=== PATIENT | female | born 1935 | race Caucasian/White ===

== ENCOUNTER 2017-05-26 08:32 | Emergency (ER) | payer MEDICARE, OTHER ==
[2017-05-26] MEDS: morphine 4 MG/ML VIAL IV (09:24)
[2017-05-26] MEDS: ONDANSETRON 4 MG INJ IV (09:24)
[2017-05-26] MEDS: METHYLPREDNISOLONE 125 MG INJ IV (09:24)
[2017-05-26] MEDS: KETOROLAC 15 MG INJ IV (09:24)
== END 2017-05-26 10:50 | disposition home or self-care (01) ==
LOC: E/R 08:32
DX: M54.42 Lumbago with sciatica, left side (principal); I10 Essential (primary) hypertension; I25.10 Atherosclerotic heart disease of native coronary artery without angina pectoris; E11.9 Type 2 diabetes mellitus without complications; Z79.82 Long term (current) use of aspirin
CPT/HCPCS: 96374; 96375; 99284-25

== ENCOUNTER 2017-08-26 17:17 | Emergency (ER) | payer MEDICARE, OTHER ==
[2017-08-26] MEDS: morphine 4 MG/ML VIAL IV (20:53)
[2017-08-26] MEDS: KETOROLAC 15 MG INJ IV (20:53)
[2017-08-26] MEDS: predniSONE 20 MG TAB PO (20:54)
[2017-08-26] MEDS: METHOCARBAMOL 750 MG TAB PO (21:01)
[2017-08-26] MEDS: HYDROmorphONE 0.5 MG/0.5 ML SYG IV (22:26)
== END 2017-08-26 22:21 | disposition home or self-care (01) ==
LOC: E/R 17:17
DX: M54.41 Lumbago with sciatica, right side (principal); M54.42 Lumbago with sciatica, left side; I10 Essential (primary) hypertension; I25.10 Atherosclerotic heart disease of native coronary artery without angina pectoris; Z79.82 Long term (current) use of aspirin; Z79.84 Long term (current) use of oral hypoglycemic drugs; Z95.1 Presence of aortocoronary bypass graft
CPT/HCPCS: 96374; 96375; 99284-25

== ENCOUNTER 2017-09-24 22:23 | Inpatient (IN) | payer MEDICARE, OTHER ==
[2017-09-24] MEDS: SOD CHLORIDE 0.9% 500 ML IV (23:30)
[2017-09-24 23:33] LABS: ADD MAN DIFF? NO
[2017-09-24 23:35] LABS: BASOPHILS % 0.4 % (0.0-2.0); EOSINOPHILS # 0.2 10^3/ul (0.0-0.5); EOSINOPHILS % 2.4 % (0.0-7.0); HEMATOCRIT 45.2 % (37.0-47.0); HEMOGLOBIN 15.4 g/dl (12.0-16.0); LYMPHOCYTES % 26.4 % (15.0-51.0); MEAN CORPUSCULAR HGB CONC 34.1 g/dl (32.0-37.0); MEAN CORPUSCULAR VOLUME 90.9 fl (82.0-101.0); MEAN PLATELET VOLUME 11.8 fl (7.4-10.4); MONOCYTE # 0.7 10^3/ul (0.3-0.9); MONOCYTES % 8.6 % (0.0-11.0); NEUTROPHIL # 4.7 10^3/ul (1.6-7.5); NEUTROPHILS % 61.8 % (39.0-77.0); PLATELET COUNT 217 10^3/UL (140-415); RED BLOOD COUNT 4.97 10^6/ul (4.20-5.40); RED CELL DISTRIBUTION WIDTH 13.8 % (11.5-14.5)
[2017-09-24 23:35] LABS: WHITE BLOOD COUNT 7.6 10^3/ul (4.8-10.8)
[2017-09-24 23:53] LABS: ANION GAP 16 (8-16); BLOOD UREA NITROGEN 52 mg/dl (7-20); CALCIUM 9.2 mg/dl (8.4-10.2); CARBON DIOXIDE 27 mmol/L (21-31); CHLORIDE 97 mmol/L (97-110); CREATININE 2.51 mg/dl (0.44-1.00); GLUCOSE 201 mg/dl (70-220); POTASSIUM 3.1 mmol/L (3.5-5.1); SODIUM 137 mmol/L (135-144)
[2017-09-24 23:54] LABS: INR 0.92; PROTIME 12.4 Sec (11.9-14.9)
[2017-09-24 23:55] LABS: PARTIAL THROMBOPLASTIN TIME 23.5 Sec (25.0-35.0)
[2017-09-25 00:05] LABS: TROPONIN-I 0.076 ng/ml (0.00-0.12)
[2017-09-25 00:34] LABS: URINE BLOOD (Dip) POC Negative (NEGATIVE); URINE KETONES (Dip) POC Negative (NEGATIVE); URINE LEUKOCYTE EST (Dip) POC Trace (NEGATIVE); URINE NITRITE (Dip) POC Negative (NEGATIVE); URINE TOTAL PROTEIN POC 1+ (NEGATIVE)
[2017-09-25 00:34] LABS: URINE PH (Dip) POC 8.5 (5.0-8.5)
[2017-09-25 00:58] LABS: ADD UMIC NO; UR ASCORBIC ACID NEGATIVE (NEGATIVE); UR BILIRUBIN (Dip) NEGATIVE (NEGATIVE); UR BLOOD (Dip) NEGATIVE (NEGATIVE); UR CLARITY CLEAR (CLEAR); UR COLOR YELLOW (YELLOW); UR GLUCOSE (Dip) 2+ mg/dL (NEGATIVE); UR KETONES (Dip) NEGATIVE (NEGATIVE); UR LEUKOCYTE ESTERASE (Dip) NEGATIVE Leu/ul (NEGATIVE); UR NITRITE (Dip) NEGATIVE (NEGATIVE); UR SPECIFIC GRAVITY (Dip) 1.011 (1.003-1.030); UR TOTAL PROTEIN (Dip) NEGATIVE (NEGATIVE); UR UROBILINOGEN (Dip) NEGATIVE (NEGATIVE)
[2017-09-25] MEDS: ONDANSETRON 4 MG INJ IV (01:36)
[2017-09-25] MEDS: SOD CHLORIDE 0.9% 1,000 ML IV (01:36)
[2017-09-25] MEDS ORDERED: ZOLPIDEM 5 MG TAB PO (04:30)
[2017-09-25] MEDS ORDERED: HYDROCODONE/APAP (5/325) TAB PO (04:30)
[2017-09-25] MEDS ORDERED: GLUCOSE GEL 15 GRAM TUBE BUCCAL (05:00)
[2017-09-25] MEDS ORDERED: DEXTROSE 50% 50 ML SYRINGE IV ×2 (05:00)
[2017-09-25] MEDS ORDERED: GLUCAGON 1 MG INJ IM (05:00)
[2017-09-25] MEDS ORDERED: GLUCOSE GEL 15 GRAM TUBE PO ×2 (05:00)
[2017-09-25] MEDS: PANTOPRAZOLE (EC) 40 MG TAB PO (06:42)
[2017-09-25 07:41] LABS: ADD MAN DIFF? NO
[2017-09-25 07:47] LABS: BASOPHILS % 0.4 % (0.0-2.0); EOSINOPHILS # 0.2 10^3/ul (0.0-0.5); EOSINOPHILS % 4.4 % (0.0-7.0); HEMATOCRIT 39.4 % (37.0-47.0); HEMOGLOBIN 13.1 g/dl (12.0-16.0); LYMPHOCYTES % 36.4 % (15.0-51.0); MEAN CORPUSCULAR HEMOGLOBIN 30.9 pg (29.0-33.0); MEAN CORPUSCULAR HGB CONC 33.2 g/dl (32.0-37.0); MEAN CORPUSCULAR VOLUME 92.9 fl (82.0-101.0); MEAN PLATELET VOLUME 11.8 fl (7.4-10.4); MONOCYTE # 0.5 10^3/ul (0.3-0.9); MONOCYTES % 8.8 % (0.0-11.0); NEUTROPHIL # 2.7 10^3/ul (1.6-7.5); NEUTROPHILS % 49.8 % (39.0-77.0); PLATELET COUNT 153 10^3/UL (140-415); RED BLOOD COUNT 4.24 10^6/ul (4.20-5.40); RED CELL DISTRIBUTION WIDTH 14.1 % (11.5-14.5)
[2017-09-25 07:47] LABS: WHITE BLOOD COUNT 5.5 10^3/ul (4.8-10.8)
[2017-09-25] MEDS: INSULIN ASPART [NOVOLOG] 3 ML PEN SC ×4 (07:55→20:50)
[2017-09-25] MEDS: SOD CHLORIDE 0.45% 1,000 ML IV (07:58)
[2017-09-25 08:27] LABS: BLOOD UREA NITROGEN 48 mg/dl (7-20); CARBON DIOXIDE 25 mmol/L (21-31); CHLORIDE 102 mmol/L (97-110); GLUCOSE 99 mg/dl (70-220); SODIUM 139 mmol/L (135-144)
[2017-09-25 08:33] LABS: ANION GAP 14 (8-16); POTASSIUM 2.4 mmol/L (3.5-5.1)
[2017-09-25] MEDS: POTASSIUM CHLORIDE (SR) 20 MEQ TAB PO ×3 (08:35→20:51)
[2017-09-25] MEDS ORDERED: MAGNESIUM HYDROXIDE 30ML CUP PO (10:00)
[2017-09-25] MEDS: ACETAMINOPHEN 325 MG TAB PO (12:56)
[2017-09-25 14:24] LABS: URIC ACID 9.7 mg/dl (3.1-7.9)
[2017-09-25 14:24] LABS: ANION GAP 13 (8-16); BLOOD UREA NITROGEN 43 mg/dl (7-20); CALCIUM 8.4 mg/dl (8.4-10.2); CARBON DIOXIDE 26 mmol/L (21-31); CHLORIDE 103 mmol/L (97-110); CREATINE KINASE 141 IU/L (23-200); GLUCOSE 161 mg/dl (70-220); POTASSIUM 3.2 mmol/L (3.5-5.1); SODIUM 139 mmol/L (135-144)
[2017-09-26] MEDS: ACCU-CHEK XX (02:00)
[2017-09-26] MEDS: SOD CHLORIDE 0.45% 1,000 ML IV (04:30)
[2017-09-26] MEDS: PANTOPRAZOLE (EC) 40 MG TAB PO (06:26)
[2017-09-26 06:48] LABS: ADD MAN DIFF? NO
[2017-09-26 06:52] LABS: WHITE BLOOD COUNT 5.6 10^3/ul (4.8-10.8)
[2017-09-26 06:52] LABS: BASOPHILS % 0.4 % (0.0-2.0); EOSINOPHILS # 0.2 10^3/ul (0.0-0.5); EOSINOPHILS % 3.8 % (0.0-7.0); HEMATOCRIT 43.3 % (37.0-47.0); HEMOGLOBIN 14.4 g/dl (12.0-16.0); LYMPHOCYTES # 1.3 10^3/ul (0.8-2.9); LYMPHOCYTES % 22.5 % (15.0-51.0); MEAN CORPUSCULAR HEMOGLOBIN 30.8 pg (29.0-33.0); MEAN CORPUSCULAR HGB CONC 33.3 g/dl (32.0-37.0); MEAN CORPUSCULAR VOLUME 92.7 fl (82.0-101.0); MEAN PLATELET VOLUME 11.9 fl (7.4-10.4); MONOCYTE # 0.5 10^3/ul (0.3-0.9); MONOCYTES % 8.9 % (0.0-11.0); NEUTROPHIL # 3.6 10^3/ul (1.6-7.5); NEUTROPHILS % 64.2 % (39.0-77.0); PLATELET COUNT 156 10^3/UL (140-415); RED BLOOD COUNT 4.67 10^6/ul (4.20-5.40)
[2017-09-26 07:15] LABS: ANION GAP 11 (8-16); BLOOD UREA NITROGEN 34 mg/dl (7-20); CARBON DIOXIDE 29 mmol/L (21-31); CHLORIDE 106 mmol/L (97-110); CREATININE 0.99 mg/dl (0.44-1.00); GLUCOSE 110 mg/dl (70-220); POTASSIUM 3.4 mmol/L (3.5-5.1); SODIUM 143 mmol/L (135-144)
[2017-09-26 07:21] LABS: B-TYPE NATRIURETIC PEPTIDE 903 PG/ML (0-450)
[2017-09-26] MEDS: POTASSIUM CHLORIDE (SR) 20 MEQ TAB PO ×2 (07:45→13:04)
[2017-09-26] MEDS: INSULIN ASPART [NOVOLOG] 3 ML PEN SC ×2 (07:45→12:02)
[2017-09-26 13:03] LABS: CREATININE, RANDOM URINE 151 mg/dL (20-320); PROTEIN/CREATININE RATIO 159 mg/g creat (21-161)
== END 2017-09-26 13:35 | disposition home or self-care (01) | DRG 684 ==
LOC: E/R 22:23 → TEL 09-25 01:33
DX: N17.9 Acute kidney failure, unspecified (principal); R55 Syncope and collapse; E87.6 Hypokalemia; I25.10 Atherosclerotic heart disease of native coronary artery without angina pectoris; M54.5 Low back pain; E11.40 Type 2 diabetes mellitus with diabetic neuropathy, unspecified; Z79.4 Long term (current) use of insulin; E11.21 Type 2 diabetes mellitus with diabetic nephropathy; E86.0 Dehydration
CPT/HCPCS: 70450; 71045; 80048; 81003; 82550; 82570; 82962; 83880; 84156; 84166; 84484; 84560; 85025; 85610; 85730; 87086; 93005; 93880